=== PATIENT | male | born 1940 | race Caucasian/White ===

== ENCOUNTER 2017-01-12 15:37 | Emergency (ER) | payer MEDICARE ==
[~2017-01-12] VITALS: Ht 167.6 cm; Wt 83.9 kg
[2017-01-12 15:40] VITALS: BP_SYST 135
[2017-01-12] MEDS ORDERED: NITROGLYCERIN 1 INCH (GM) OINT. TD ONE (16:00)
[2017-01-12 16:23] LABS: ANION GAP 12 (5-15); CHLORIDE 96 mmol/L (98-107); CREATININE 1.54 mg/dL (0.55-1.30); POTASSIUM 4.3 mmol/L (3.5-5.1); SODIUM SERUM 131 mmol/L (136-145); UREA NITROGEN, BLOOD 23 mg/dL (8-21)
[2017-01-12 16:28] LABS: ALANINE AMINOTRANSFERASE 22 U/L (12-78); ASPARTATE AMINOTRANSFERASE 17 U/L (10-37); GLUCOSE 438 mg/dL (70-99); TOTAL BILIRUBIN 0.9 mg/dL (0.0-1.0)
[2017-01-12 16:29] LABS: ALBUMIN 3.4 g/dL (3.4-4.8); TOTAL PROTEIN, SERUM 6.6 g/dL (6.4-8.3)
[2017-01-12 16:34] LABS: PROTHROMBIN TIME 10.4 SECS (9.5-12.5)
[2017-01-12 16:35] LABS: BASOPHILS # (AUTO) 0.1 K/uL (0.0-0.2); BASOPHILS % (AUTO) 0.7 % (0.0-2.0); EOSINOPHILS # (AUTO) 0.1 K/uL (0.0-0.4); EOSINOPHILS % (AUTO) 0.5 % (0.0-4.0); HEMATOCRIT 40.4 % (36-54); HEMOGLOBIN 13.7 g/dL (14.0-18.0); LYMPHOCYTES # (AUTO) 2.5 K/uL (1.0-5.5); LYMPHOCYTES % (AUTO) 22.8 % (20.5-51.5); MEAN CORPUSCULAR HEMOGLOBIN 30 pg (27-31); MEAN CORPUSCULAR HGB CONC 34 % (32-36); MEAN CORPUSCULAR VOLUME 87 fL (79.0-98.0); MONOCYTES # (AUTO) 0.5 K/uL (0.0-1.0); MONOCYTES % (AUTO) 4.7 % (1.7-9.3); NEUTROPHILS # (AUTO) 7.8 K/uL (1.8-7.7); NEUTROPHILS % (AUTO) 71.3 % (40.0-70.0); PLATELET COUNT (AUTO) 223 K/uL (130-430); RED BLOOD CELL COUNT(AUTO) 4.64 MIL/uL (4.2-6.2); RED CELL DISTRIBUTION WIDTH 11.7 % (9.0-15.0)
[2017-01-12] MEDS ORDERED: NACL 0.9% 1,000 ML IV ONE (16:45)
[2017-01-12] MEDS ORDERED: ONDANSETRON HCL 4 MG/2 ML VIAL IVP ONE (17:00)
[2017-01-12] MEDS ORDERED: NITROGLYCERIN 0.4 MG TAB.SUBL SL ONE (17:00)
[2017-01-12] MEDS ORDERED: MORPHINE 4 MG/ML INJ. SYRINGE IVP ONE (17:00)
[2017-01-12] MEDS ORDERED: INSULIN REGULAR, HUMAN 10 UNITS/0.1 ML INJ IVP ONE (17:30)
[2017-01-12 20:25] VITALS: BP_SYST 120
== END 2017-01-12 20:25 | disposition short-term general hospital (02) ==
LOC: SED 15:37
DX: R07.89 Other chest pain (principal); E11.65 Type 2 diabetes mellitus with hyperglycemia
CPT/HCPCS: 36415; 71010; 80053; 83880; 84484; 85025; 85610; 85730; 93005; 96361; 96372; 96374; 96375; 99285; J1815; J2270; J2405; J7030